=== PATIENT | male | born 1945 | race Caucasian/White ===

== ENCOUNTER → 2020-10-24 | Outpatient (REF) | payer OTHER ==
[2020-10-24 14:08] LABS: ALBUMIN 3.5 GM/DL (3.2-5.2); BILIRUBIN,TOTAL 0.5 MG/DL (0.2-1.0); CALCIUM LEVEL 9.6 MG/DL (8.8-10.2); CREATININE FOR GFR 1.72 MG/DL (0.70-1.30); GLOMERULAR FILTRATION RATE 41.4 (>42); POTASSIUM SERUM 4.7 MEQ/L (3.5-5.1); TOTAL PROTEIN 6.4 GM/DL (6.4-8.2)
[2020-10-24 14:11] LABS: HEMOGLOBIN A1c 6.2 %
== END ==
LOC: M SFHCADAM 11:14
PROVIDERS: ATTEND Family Medicine
DX: I45.6 Pre-excitation syndrome (principal); E11.69 Type 2 diabetes mellitus with other specified complication; E66.9 Obesity, unspecified; R79.89 Other specified abnormal findings of blood chemistry

== ENCOUNTER → 2020-12-28 | Outpatient (REF) | payer MEDICARE ==
[2020-12-28 18:14] LABS: PERCENT SATURATION 25.5 % (19.7-50.0)
== END ==
LOC: M LAB REF 17:24
PROVIDERS: ATTEND Internal Medicine Nephrology
DX: D50.9 Iron deficiency anemia, unspecified (principal)

== ENCOUNTER → 2021-01-17 | Outpatient (CLI) | payer MEDICARE ==
--- NOTE | 2021-01-17 12:04 | REP ---
INDICATION: CKD III COMPARISON: None TECHNIQUE: Real time gilman scale ultrasound examination using curved array transducer. FINDINGS: The kidneys are normal in reniform shape and size demonstrating increased central sinus fat and cortical thinning. No hydronephrosis or obvious nephrolithiasis is appreciated. Right kidney measures 13.1 x 5.2 x 5.6 cm and includes 1.4 cm lower pole simple appearing cyst. Left kidney measures 13.8 x 4.8 x 4.8 cm and includes 1.1 cm hypodense peripelvic lesion and 1.0 cm hypodense cortical based lower pole lesion likely representing complex cysts. Bladder is grossly unremarkable. Prostate gland is mildly enlarged measuring 4.4 x 5.0 x 3.9 cm (45 cc). IMPRESSION: 1. Chronic medical renal disease and presumed simple/complex cysts. No prior examinations are available for comparison and 6-9 month follow-up may be considered. 2. Prostatomegaly. <Electronically signed by John Cassidy > 01/17/21 1200
== END ==
LOC: M RAD 11:27
PROVIDERS: ATTEND Internal Medicine Nephrology
DX: N18.32 Chronic kidney disease, stage 3b (principal); N40.0 Benign prostatic hyperplasia without lower urinary tract symptoms; N28.1 Cyst of kidney, acquired

== ENCOUNTER → 2021-01-30 | Outpatient (REF) | payer MEDICARE ==
[~2021-01-30] MED LIST: ACTO45TA12 PO; CYAN500T14 PO; JANU100T PO; LOVA20TA2 PO; METF500T13 PO; METO1TAB87 PO; QUIN10TA PO; VITA400T PO; VITMTA PO; [UNRECOGNIZED DRUG - CODE] PO
[2021-01-30 11:34] LABS: HEMOGLOBIN A1c 6.2 %
[2021-01-30 11:37] LABS: ALBUMIN 3.6 GM/DL (3.2-5.2); BILIRUBIN,TOTAL 0.7 MG/DL (0.2-1.0); CALCIUM LEVEL 9.3 MG/DL (8.8-10.2); CHOLESTEROL RISK RATIO 2.788 (<5); CREATININE FOR GFR 1.9 MG/DL (0.70-1.30); GLOMERULAR FILTRATION RATE 36.9 (>42); POTASSIUM SERUM 4.3 MEQ/L (3.5-5.1); TOTAL PROTEIN 6.5 GM/DL (6.4-8.2)
== END ==
LOC: M SFHCADAM 09:12
PROVIDERS: ATTEND Family Medicine
DX: E11.69 Type 2 diabetes mellitus with other specified complication (principal)
CPT/HCPCS: 80053; 80061; 83036; G0463

== ENCOUNTER → 2021-04-29 | Outpatient (REF) | payer MEDICARE ==
[2021-04-29 16:22] LABS: ALBUMIN 3.4 GM/DL (3.2-5.2); BILIRUBIN,TOTAL 0.8 MG/DL (0.2-1.0); CALCIUM LEVEL 9.5 MG/DL (8.8-10.2); CREATININE FOR GFR 1.78 MG/DL (0.70-1.30); GLOMERULAR FILTRATION RATE 39.8 (>42); POTASSIUM SERUM 4.2 MEQ/L (3.5-5.1); TOTAL PROTEIN 6.4 GM/DL (6.4-8.2)
[2021-04-29 18:02] LABS: HEMOGLOBIN A1c 6.6 %
== END ==
LOC: M SFHCADAM 07:56
PROVIDERS: ATTEND Family Medicine
DX: E11.69 Type 2 diabetes mellitus with other specified complication (principal)

== ENCOUNTER → 2021-07-17 | Outpatient (CLI) | payer MEDICARE | LOC: M LABSMTC 11:29 | PROVIDERS: ATTEND Anesthesiology | DX: Z01.812 Encounter for preprocedural laboratory examination (principal); Z20.822 Contact with and (suspected) exposure to COVID-19 ==

== ENCOUNTER 2021-07-22 06:38 | Day surgery (SDC) | payer MEDICARE ==
[~2021-07-22] VITALS: Ht 172.7 cm; Wt 120.1 kg
[~2021-07-22 06:38] MED LIST changes: +NS 1,000 ML IV ONE
[2021-07-22] MEDS ORDERED: propofoL 200 MG/20 ML VIAL As Ordered ONE ×2 (07:16→07:30)
[2021-07-22] MEDS ORDERED: LIDOCAINE 2% 100MG/5ML SDV (FOR ANES.) As Ordered ONE (07:16)
--- NOTE | 2021-07-22 08:20 | ROOR ---
Patient Name: Remigio Ty Procedure Date: 07/22/2021 7:32 AM Date of : 1945 Age: 76 Room: [facility] Gender: Male Note Status: Finalized Procedure: Colonoscopy Indications: Screening patient at increased risk: Family history of 1st-degree relative with colorectal cancer at age 60 years (or older), High risk colon cancer surveillance: Personal history of colonic polyps Providers: Robin Baez MD Referring MD: Ana M Means DO Requesting Provider: Medicines: Monitored Anesthesia Care Complications: No immediate complications. Procedure: Pre-Anesthesia Assessment: - Prior to the procedure, a History and Physical was performed, and patient medications and allergies were reviewed. The patient is competent. The risks and benefits of the procedure and the sedation options and risks were discussed with the patient. All questions were answered and informed consent was obtained. Patient identification and proposed procedure were verified by the physician, the nurse and the anesthesiologist in the procedure room. Mental Status Examination: alert and oriented. Airway Examination: normal oropharyngeal airway and neck mobility. Respiratory Examination: clear to auscultation. CV Examination: normal. Prophylactic Antibiotics: The patient does not require prophylactic antibiotics. Prior Anticoagulants: The patient has taken no previous anticoagulant or antiplatelet agents. ASA Grade Assessment: II - A patient with mild systemic disease. After reviewing the risks and benefits, the patient was deemed in satisfactory condition to undergo the procedure. The anesthesia plan was to use monitored anesthesia care (MAC). Immediately prior to administration of medications, the patient was re-assessed for adequacy to receive sedatives. The heart rate, respiratory rate, oxygen saturations, blood pressure, adequacy of pulmonary ventilation, and response to care were monitored throughout the procedure. The physical status of the patient was re-assessed after the procedure. The Colonoscope was introduced through the anus and advanced to the terminal ileum, with identification of the appendiceal orifice and IC valve. The colonoscopy was performed without difficulty. The patient tolerated the procedure well. The quality of the bowel preparation was good. The terminal ileum, ileocecal valve, appendiceal orifice, and rectum were photographed. Scope insertion time was 2 minutes. Scope withdrawal time was 9 minutes. The total duration of the procedure was 14 minutes. Findings: The perianal and digital rectal examinations were normal. The terminal ileum appeared normal. Eight sessile polyps were found in the recto-sigmoid colon, descending colon, ascending colon and cecum. The polyps were 5 to 10 mm in size. These polyps were removed with a cold snare. Resection and retrieval were complete. Verification of patient identification for the specimen was done by the physician and nurse using the patient's name, date and medical record number. Estimated blood loss was minimal. Multiple small and large-mouthed diverticula were found from sigmoid to ascending colon. There was no evidence of diverticular bleeding. Non-bleeding external and internal hemorrhoids were found during retroflexion. The hemorrhoids were medium-sized. Impression: - The examined portion of the ileum was normal. - Eight 5 to 10 mm polyps at the recto-sigmoid colon, in the descending colon, in the ascending colon and in the cecum, removed with a cold snare. Resected and retrieved. - Moderate diverticulosis from sigmoid to ascending colon. There was no evidence of diverticular bleeding. - Non-bleeding external and internal hemorrhoids. Recommendation: - Patient has a contact number available for emergencies. The signs and symptoms of potential delayed complications were discussed with the patient. Return to normal activities tomorrow. Written discharge instructions were provided to the patient. - High fiber diet. - Continue present medications. - Await pathology results. - Repeat colonoscopy in 3 years for surveillance based on pathology results and for surveillance of multiple polyps. - Telephone GI clinic for pathology results in 2 weeks. - Return to GI clinic if persistent symptoms or new symptoms. - Return to primary care physician. Procedure Code(s): --- Professional --- 86310, Colonoscopy, flexible; with removal of tumor(s), polyp(s), or other lesion(s) by snare technique Diagnosis Code(s): --- Professional --- Z80.0, Family history of malignant neoplasm of digestive organs Z86.010, Personal history of colonic polyps K64.8, Other hemorrhoids K63.5, Polyp of colon K57.30, Diverticulosis of large intestine without perforation or abscess without bleeding CPT copyright 2019 [employer]. All rights reserved. The codes documented in this report are preliminary and upon nursing service administrator review may be revised to meet current compliance requirements. Robin Baez MD Robin Baez MD 07/22/2021 8:20:29 AM Electronically signed by Robin Baez MD Number of Addenda: 0 Note Initiated On: 07/22/2021 7:32 AM Estimated Blood Loss: Estimated blood loss was minimal.
[2021-07-22 08:34] VITALS: BP 128/66
== END 2021-07-22 08:45 | disposition home or self-care (01) ==
LOC: M OPP 06:38
PROVIDERS: ATTEND Internal Medicine Gastroenterology
DX: Z12.11 Encounter for screening for malignant neoplasm of colon (principal); Z86.010 Personal history of colon polyps; Z80.0 Family history of malignant neoplasm of digestive organs; K63.5 Polyp of colon; K57.30 Diverticulosis of large intestine without perforation or abscess without bleeding; K64.0 First degree hemorrhoids; I45.6 Pre-excitation syndrome; Z79.84 Long term (current) use of oral hypoglycemic drugs; Z79.899 Other long term (current) drug therapy; Z87.891 Personal history of nicotine dependence

== ENCOUNTER → 2021-07-25 | Outpatient (REF) | payer MEDICARE ==
[~2021-07-25] MED LIST changes: -NS 1,000 ML IV ONE
[2021-07-25 13:50] LABS: MAGNESIUM LEVEL 1.6 MG/DL (1.8-2.4)
== END ==
LOC: M LAB REF 12:49
PROVIDERS: ATTEND Internal Medicine Nephrology
DX: R60.9 Edema, unspecified (principal); E83.42 Hypomagnesemia; N18.32 Chronic kidney disease, stage 3b

== ENCOUNTER → 2021-08-01 | Outpatient (CLI) | payer MEDICARE ==
[2021-08-01 13:46] LABS: HEMOGLOBIN A1c 6.6 %
[2021-08-01 13:49] LABS: ALBUMIN 3.3 GM/DL (3.2-5.2); BILIRUBIN,TOTAL 0.6 MG/DL (0.2-1.0); CALCIUM LEVEL 9.5 MG/DL (8.8-10.2); CREATININE FOR GFR 1.75 MG/DL (0.70-1.30); GLOMERULAR FILTRATION RATE 40.4 (>42); POTASSIUM SERUM 4.6 MEQ/L (3.5-5.1); TOTAL PROTEIN 6.2 GM/DL (6.4-8.2)
== END ==
LOC: M PLALAB 09:23
PROVIDERS: ATTEND Family Medicine
DX: E11.69 Type 2 diabetes mellitus with other specified complication (principal)

== ENCOUNTER → 2021-08-05 | Outpatient (CLI) | payer MEDICARE | LOC: M RAD 14:57 | PROVIDERS: ATTEND Internal Medicine Nephrology | DX: N18.32 Chronic kidney disease, stage 3b (principal); N28.1 Cyst of kidney, acquired | CPT/HCPCS: 76775; G0463 ==

== ENCOUNTER → 2021-11-06 | Outpatient (REF) | payer MEDICARE ==
[2021-11-06 13:30] LABS: ALBUMIN 3.5 GM/DL (3.2-5.2); BILIRUBIN,TOTAL 1.2 MG/DL (0.2-1.0); CALCIUM LEVEL 9.2 MG/DL (8.8-10.2); CREATININE FOR GFR 1.72 MG/DL (0.70-1.30); GLOMERULAR FILTRATION RATE 41.3 (>42); POTASSIUM SERUM 4.6 MEQ/L (3.5-5.1); TOTAL PROTEIN 6.2 GM/DL (6.4-8.2)
== END ==
LOC: M SFHCADAM 08:26
PROVIDERS: ATTEND Family Medicine
DX: E11.69 Type 2 diabetes mellitus with other specified complication (principal)

== ENCOUNTER → 2021-12-04 | Outpatient (REF) | payer MEDICARE | LOC: M SFHCADAM 12:29 | PROVIDERS: ATTEND Physician Assistant | DX: R05.9 Cough, unspecified (principal) ==

== ENCOUNTER → 2022-02-03 | Outpatient (REF) | payer MEDICARE ==
[2022-02-03 14:13] LABS: ALBUMIN 3.3 GM/DL (3.2-5.2); BILIRUBIN,TOTAL 0.6 MG/DL (0.2-1.0); CALCIUM LEVEL 9.5 MG/DL (8.8-10.2); CREATININE FOR GFR 1.78 MG/DL (0.70-1.30); GLOMERULAR FILTRATION RATE 39.7 (>42); POTASSIUM SERUM 4.3 MEQ/L (3.5-5.1); TOTAL PROTEIN 6.1 GM/DL (6.4-8.2)
[2022-02-03 14:22] LABS: HEMOGLOBIN A1c 6.5 %
== END ==
LOC: M SFHCADAM 07:37
PROVIDERS: ATTEND Family Medicine
DX: E11.69 Type 2 diabetes mellitus with other specified complication (principal)

== ENCOUNTER → 2022-04-29 | Outpatient (REF) | payer MEDICARE ==
[2022-04-29 13:42] LABS: HEMOGLOBIN A1c 6.6 %
[2022-04-29 14:01] LABS: ALBUMIN 3.4 GM/DL (3.2-5.2); BILIRUBIN,TOTAL 0.7 MG/DL (0.2-1.0); CALCIUM LEVEL 9.4 MG/DL (8.8-10.2); CREATININE FOR GFR 1.8 MG/DL (0.70-1.30); GLOMERULAR FILTRATION RATE 39.1 (>42); POTASSIUM SERUM 4.3 MEQ/L (3.5-5.1); TOTAL PROTEIN 6.1 GM/DL (6.4-8.2)
[2022-04-29 14:30] LABS: TOTAL 25(OH) VITAMIN D 60.3 NG/ML (30.0-100.0)
== END ==
LOC: M SFHCADAM 07:40
PROVIDERS: ATTEND Family Medicine
DX: E11.69 Type 2 diabetes mellitus with other specified complication (principal); Z86.39 Personal history of other endocrine, nutritional and metabolic disease; Z79.899 Other long term (current) drug therapy

== ENCOUNTER → 2022-08-14 | Outpatient (REF) | payer MEDICARE ==
[2022-08-14 19:42] LABS: CREATININE, URINE 94.6 MG/DL; MAU/CREAT RATIO 21.1 MCG/MG (0.0-30.0)
== END ==
LOC: M LAB REF 17:29
PROVIDERS: ATTEND Internal Medicine Nephrology
DX: E11.22 Type 2 diabetes mellitus with diabetic chronic kidney disease (principal)

== ENCOUNTER → 2022-09-30 | Outpatient (REF) | payer MEDICARE ==
[2022-09-30 14:38] LABS: CHOLESTEROL RISK RATIO 3.09 (<5); HDL CHOLESTEROL 42.6 MG/DL (>40); LDL CHOLESTEROL 67.8 MG/DL (<100)
== END ==
LOC: M LABDRWAD 12:31
PROVIDERS: ATTEND Physician Assistant
DX: E78.00 Pure hypercholesterolemia, unspecified (principal)

== ENCOUNTER → 2022-09-30 | Outpatient (REF) | payer MEDICARE ==
[2022-09-30 14:27] LABS: HEMOGLOBIN A1c 6.7 % (4.0-6.0)
[2022-09-30 14:41] LABS: ALBUMIN 3.2 G/DL (3.2-5.2); BILIRUBIN,TOTAL 1.1 MG/DL (0.3-1.2); CALCIUM LEVEL 9.1 MG/DL (8.3-10.6); CREATININE FOR GFR 1.58 MG/DL (0.70-1.30); GLOMERULAR FILTRATION RATE 45.4 (>42); POTASSIUM SERUM 4.6 MMOL/L (3.5-5.1)
== END ==
LOC: M SFHCADAM 07:34
PROVIDERS: ATTEND Family Medicine
DX: E11.69 Type 2 diabetes mellitus with other specified complication (principal)

== ENCOUNTER → 2022-12-19 | Outpatient (REF) | payer MEDICARE ==
[2022-12-19 13:46] LABS: HEMOGLOBIN A1c 7.2 % (4.0-6.0)
[2022-12-19 14:01] LABS: ALBUMIN 3.3 G/DL (3.2-5.2); BILIRUBIN,TOTAL 0.8 MG/DL (0.3-1.2); CALCIUM LEVEL 9.3 MG/DL (8.3-10.6); CREATININE FOR GFR 1.67 MG/DL (0.70-1.30); GLOMERULAR FILTRATION RATE 42.6 (>42); POTASSIUM SERUM 4.3 MMOL/L (3.5-5.1)
== END ==
LOC: M SFHCADAM 12:47
PROVIDERS: ATTEND Family Medicine
DX: E11.69 Type 2 diabetes mellitus with other specified complication (principal)

== ENCOUNTER → 2022-12-24 | Outpatient (REF) | payer MEDICARE | LOC: M SFHCDERM 12:36 | PROVIDERS: ATTEND Nurse Practitioner Family | DX: L57.8 Other skin changes due to chronic exposure to nonionizing radiation (principal) ==

== ENCOUNTER → 2023-01-15 | Outpatient (CLI) | payer MEDICARE | LOC: M SOG 08:15 | PROVIDERS: ATTEND Physician Assistant | DX: M79.644 Pain in right finger(s) (principal); M19.041 Primary osteoarthritis, right hand ==

== ENCOUNTER → 2023-02-27 | Outpatient (REF) | payer MEDICARE ==
[2023-02-27 13:45] LABS: HEMOGLOBIN A1c 6.8 % (4.0-6.0)
[2023-02-27 14:07] LABS: ALBUMIN 3.3 G/DL (3.2-5.2); BILIRUBIN,TOTAL 0.9 MG/DL (0.3-1.2); CALCIUM LEVEL 9.1 MG/DL (8.3-10.6); CREATININE FOR GFR 1.7 MG/DL (0.70-1.30); GLOMERULAR FILTRATION RATE 41.7 (>42); POTASSIUM SERUM 4.5 MMOL/L (3.5-5.1); TOTAL PROTEIN 5.9 G/DL (5.7-8.2)
== END ==
LOC: M LAB REF 12:17
PROVIDERS: ATTEND Family Medicine
DX: E11.69 Type 2 diabetes mellitus with other specified complication (principal)

== ENCOUNTER → 2023-06-10 | Outpatient (REF) | payer MEDICARE | LOC: M SFHCDERM 13:02 | PROVIDERS: ATTEND Nurse Practitioner Family | DX: L57.0 Actinic keratosis (principal); L08.89 Other specified local infections of the skin and subcutaneous tissue ==

== ENCOUNTER 2023-07-17 06:05 | Day surgery (SDC) | payer MEDICARE ==
[~2023-07-17] VITALS: Ht 172.7 cm; Wt 113.3 kg
[~2023-07-17 06:05] MED LIST changes: +B COCAP4 PO; +LISI10TA24 PO
[2023-07-17] MEDS ORDERED: LIDOCAINE W/EPINEPHRINE 1% 20ML VIAL XX ONE (07:15)
[2023-07-17] MEDS ORDERED: SODIUM BICARBONATE 8.4% INJ 50MEQ 50ML VIAL XX ONE (07:15)
[2023-07-17] MEDS ORDERED: BACITRACIN OINTMENT 30GM TUBE As Ordered ONE (07:15)
[2023-07-17 08:36] VITALS: BP 153/72; TEMP 97.5; O2SAT 95
== END 2023-07-17 08:54 | disposition home or self-care (01) ==
LOC: M SDC 06:05
PROVIDERS: ATTEND Orthopaedic Surgery Hand Surgery
DX: M65.311 Trigger thumb, right thumb (principal); I10 Essential (primary) hypertension; E11.9 Type 2 diabetes mellitus without complications; E78.5 Hyperlipidemia, unspecified; I45.6 Pre-excitation syndrome; Z87.891 Personal history of nicotine dependence; Z79.84 Long term (current) use of oral hypoglycemic drugs; Z79.899 Other long term (current) drug therapy

== ENCOUNTER → 2023-07-31 | Outpatient (REF) | payer MEDICARE ==
[2023-07-31 14:39] LABS: ALBUMIN 3.3 G/DL (3.2-5.2); BILIRUBIN,TOTAL 0.6 MG/DL (0.3-1.2); CALCIUM LEVEL 9.6 MG/DL (8.3-10.6); CREATININE FOR GFR 1.65 MG/DL (0.70-1.30); GLOMERULAR FILTRATION RATE 43.1 (>42); POTASSIUM SERUM 4.7 MMOL/L (3.5-5.1); TOTAL PROTEIN 5.9 G/DL (5.7-8.2)
[2023-07-31 15:20] LABS: HEMOGLOBIN A1c 6.4 % (4.0-6.0)
== END ==
LOC: M SFHCADAM 07:29
PROVIDERS: ATTEND Family Medicine
DX: E11.69 Type 2 diabetes mellitus with other specified complication (principal)

== ENCOUNTER → 2023-12-16 | Outpatient (REF) | payer MEDICARE | LOC: M SFHCDERM 17:41 | PROVIDERS: ATTEND Nurse Practitioner Family | DX: D04.39 Carcinoma in situ of skin of other parts of face (principal); L57.0 Actinic keratosis ==

== ENCOUNTER → 2024-04-06 | Outpatient (REF) | payer MEDICARE ==
[2024-04-06 12:57] LABS: BASO # 0.1 10^3/uL (0.0-0.2); BASO % 1.2 % (0.0-1.0); EOS # 0.4 10^3/uL (0.0-0.5); EOS % 7.8 % (0.0-3.0); HEMATOCRIT 35.2 % (42.0-52.0); HEMOGLOBIN 11.4 g/dl (13.5-17.5); LYMPH # 1.6 10^3/uL (1.5-5.0); LYMPH % 28.4 % (24.0-44.0); MEAN CORPUSCULAR HEMOGLOBIN 34.1 pg (27.0-33.0); MEAN CORPUSCULAR HGB CONC 32.4 g/dl (32.0-36.5); MEAN CORPUSCULAR VOLUME 105.4 fl (80.0-96.0); MONO # 0.5 10^3/uL (0.0-0.8); MONO % 8.1 % (2.0-8.0); NEUTROPHILS # 3.1 10^3/uL (1.5-8.5); NEUTROPHILS % 54.3 % (36.0-66.0); PLATELET COUNT, AUTOMATED 168 10^3/uL (150-450); RED BLOOD COUNT 3.34 10^6/uL (4.30-6.10); WHITE BLOOD COUNT 5.7 10^3/uL (4.0-10.0)
[2024-04-06 13:02] LABS: ALBUMIN 3.5 G/DL (3.2-5.2); BILIRUBIN,TOTAL 0.7 MG/DL (0.3-1.2); CALCIUM LEVEL 9.3 MG/DL (8.3-10.6); CHOLESTEROL RISK RATIO 3.1 (<5); CREATININE FOR GFR 1.77 MG/DL (0.70-1.30); GLOMERULAR FILTRATION RATE 39.7 (>42); HDL CHOLESTEROL 41.9 MG/DL (>40); LDL CHOLESTEROL 70.3 MG/DL (<100); NON-HDL-C 88.1 MG/DL; POTASSIUM SERUM 4.5 MMOL/L (3.5-5.1); PSA SCREENING 1.67 NG/ML (< 4.00); TOTAL PROTEIN 6.1 G/DL (5.7-8.2)
[2024-04-06 13:03] LABS: FREE T4 1.06 NG/DL (0.89-1.76)
[2024-04-06 13:04] LABS: THYROID STIMULATING HORMONE 1.419 uIU/ML (0.55-4.78)
[2024-04-06 13:13] LABS: HEMOGLOBIN A1c 6.2 % (4.0-6.0)
== END ==
LOC: M SFHCADAM 07:33
PROVIDERS: ATTEND Family Medicine
DX: Z00.00 Encounter for general adult medical examination without abnormal findings (principal); E11.69 Type 2 diabetes mellitus with other specified complication; R35.0 Frequency of micturition; Z12.5 Encounter for screening for malignant neoplasm of prostate
CPT/HCPCS: 80053; 80061; 83036; 84439; 84443; 85025; G0103

== ENCOUNTER → 2024-09-13 | Outpatient (REF) | payer MEDICARE | LOC: M SFHCADAM 09:07 | PROVIDERS: ATTEND Family Medicine | DX: R05.1 Acute cough (principal) ==

== ENCOUNTER → 2024-10-12 | Outpatient (CLI) | payer MEDICARE | LOC: M CARPUL 14:58 | PROVIDERS: ATTEND Registered Nurse | DX: I27.20 Pulmonary hypertension, unspecified (principal); I08.0 Rheumatic disorders of both mitral and aortic valves; I50.30 Unspecified diastolic (congestive) heart failure; I37.1 Nonrheumatic pulmonary valve insufficiency ==

== ENCOUNTER → 2024-10-18 | Outpatient (REF) | payer MEDICARE ==
[2024-10-18 15:21] LABS: ALBUMIN 3.1 G/DL (3.2-5.2); BILIRUBIN,TOTAL 0.7 MG/DL (0.3-1.2); CREATININE FOR GFR 1.73 MG/DL (0.70-1.30); GLOMERULAR FILTRATION RATE 40.7 (>35); POTASSIUM SERUM 4.5 MMOL/L (3.5-5.1)
[2024-10-18 15:30] LABS: HEMOGLOBIN A1c 6.1 % (4.0-6.0)
== END ==
LOC: M SFHCADAM 07:34
PROVIDERS: ATTEND Family Medicine
DX: E11.69 Type 2 diabetes mellitus with other specified complication (principal)

== ENCOUNTER → 2024-11-24 | Outpatient (CLI) | payer MEDICARE | LOC: M CARPUL 14:36 | PROVIDERS: ATTEND Registered Nurse | DX: R94.31 Abnormal electrocardiogram [ECG] [EKG] (principal); I44.0 Atrioventricular block, first degree ==

== ENCOUNTER → 2024-12-15 | Outpatient (CLI) | payer MEDICARE | LOC: M EKG 11:10 | PROVIDERS: ATTEND Registered Nurse | DX: I47.10 Supraventricular tachycardia, unspecified (principal) ==

== ENCOUNTER → 2025-04-25 | Outpatient (REF) | payer MEDICARE ==
[~2025-04-25] MED LIST changes: -QUIN10TA PO; +QUIN1TAB PO
[2025-04-25 14:13] LABS: ALT/SGPT 19.0 U/L (7.0-40); AST/SGOT 24.0 U/L (<34); CALCIUM LEVEL 9.9 MG/DL (8.3-10.6); CARBON DIOXIDE LEVEL 28.0 MMOL/L (20-31); CHLORIDE LEVEL 106.0 MMOL/L (98-107); CHOLESTEROL LEVEL 192.0 MG/DL (<200); CHOLESTEROL RISK RATIO 4.75 (<5); CREATININE FOR GFR 1.53 MG/DL (0.70-1.30); GLOMERULAR FILTRATION RATE 45.7 (>35); LDL CHOLESTEROL 126.0 MG/DL (<100); NON-HDL-C 151.6 MG/DL; POTASSIUM SERUM 4.8 MMOL/L (3.5-5.1); SODIUM LEVEL 141.0 MMOL/L (136-145); TRIGLYCERIDES LEVEL 128.0 MG/DL (<150)
[2025-04-25 14:33] LABS: ESTIMATED AVERAGE GLUCOSE 148.0 MG/DL (60-110)
== END ==
LOC: M SFHCADAM 07:45
PROVIDERS: ATTEND Family Medicine
DX: E11.69 Type 2 diabetes mellitus with other specified complication (principal)

== ENCOUNTER → 2025-05-01 | Outpatient (CLI) | payer MEDICARE | LOC: M ADAMS 12:04 | PROVIDERS: ATTEND Family Medicine | DX: M19.012 Primary osteoarthritis, left shoulder (principal) ==

== ENCOUNTER → 2025-06-15 | Outpatient (REF) | payer MEDICARE | LOC: M SFHCDERM 17:29 | PROVIDERS: ATTEND Nurse Practitioner Family | DX: C44.229 Squamous cell carcinoma of skin of left ear and external auricular canal (principal) ==